=== PATIENT | female | born 1955 | race Caucasian/White ===

== ENCOUNTER 2018-11-02 20:09 | Emergency (ER) | payer BC ==
[2018-11-02] MEDS ORDERED: KETOROLAC TROMETHAMINE 15MG/ML ONE (20:36)
[2018-11-02 20:42] LABS: BASOPHILS % (AUTO) 0.7 % (0.0-5.0); EOSINOPHILS % (AUTO) 0.6 % (0.0-8.0); HEMATOCRIT 40.3 % (36-48); LYMPHOCYTES % (AUTO) 16.6 % (21.0-51.0); MEAN CORPUSCULAR HEMOGLOBIN 32.1 pg (27.0-33.0); MEAN CORPUSCULAR HGB CONC 34.7 g/dL (32.0-36.0); MEAN CORPUSCULAR VOLUME 92.5 fL (79-99); MONOCYTES % (AUTO) 7.1 % (3.0-13.0); PLATELET COUNT (AUTO) 248 K/uL (130-400); RED BLOOD CELL COUNT(AUTO) 4.35 MIL/uL (4.00-5.50); RED CELL DISTRIBUTION WIDTH 13.5 % (11.0-15.5); WHITE BLOOD COUNT (AUTO) 9.1 K/uL (4.8-10.8)
[2018-11-02 20:55] LABS: CREATININE 0.8 mg/dL (0.5-1.5); POTASSIUM 3.9 mmol/L (3.5-5.1)
== END 2018-11-02 23:00 | disposition home or self-care (01) ==
LOC: EDH 20:09
DX: R42 Dizziness and giddiness (principal); R11.10 Vomiting, unspecified; M79.642 Pain in left hand; I48.91 Unspecified atrial fibrillation; I10 Essential (primary) hypertension; M19.90 Unspecified osteoarthritis, unspecified site; E78.00 Pure hypercholesterolemia, unspecified; Z88.6 Allergy status to analgesic agent; Z88.8 Allergy status to other drugs, medicaments and biological substances; Z79.899 Other long term (current) drug therapy; Z72.0 Tobacco use; Z90.710 Acquired absence of both cervix and uterus
CPT/HCPCS: 36415; 80048; 84484 ×2; 85025; 93005 ×2; 96374; 99285; J1885

== ENCOUNTER → 2024-01-27 | Outpatient (CLI) | payer OTHER ==
[~2024-01-27] MED LIST: APIX5TAB PO; ATOR20TA65 PO; AUD IH; CLON0.1T PO; DILT120C95 PO; DOCU100C33 PO; DOXY100T2 PO; FERS325 PO; FLUT15.845 NS; FLUT1DIS3 IH; LEVO-70 PO; MAGN400T51 PO; MIDO5TAB4 PO; PANT40TA54 PO; SERT-440 PO; TRAM50TA4 PO; VARE0.5T6 PO
--- NOTE | 2024-01-27 15:14 | HMCIMG ---
CT LOW EXT W/O CONTRAST HISTORY: Right femur cellulitis COMPARISON: 12/08/2023 TECHNIQUE: Multiple sequential axial images of the right knee, tibia and fibula were obtained including post processing sagittal and coronal reconstruction images. Patient was not given contrast through intravenous route. FINDINGS: Note is again made of complex fluid collection with scar formation noted in the anterolateral aspect of the right mid tibia and fibula now measuring 5 mm in thickness which is decreased in size from previous study. No acute displaced fracture or dislocation seen. Interval improvement is seen. Degenerative changes are seen. Evaluation for osteomyelitis is limited CT. IMPRESSION: 1. Note is again made of complex fluid collection with scar formation noted in the anterolateral aspect of the right mid tibia and fibula now measuring 5 mm in thickness which is decreased in size from previous study. No acute displaced fracture or dislocation seen. Interval improvement is seen. CT was performed with one or more following dose reduction techniques: automated exposure control, adjustment of the mA and kv according to patient's size, or use of a iterative reconstruction technique.
--- NOTE | 2024-01-27 15:47 | HMCIMG ---
CT LOW EXT W/O CONTRAST HISTORY: Right medial knee swelling COMPARISON: 12/08/[address] of the tibia and fibula study TECHNIQUE: Multiple sequential axial images of the right femur, hip and knee were obtained including post processing sagittal and coronal reconstruction images. Patient was not given contrast through intravenous route. FINDINGS: There are degenerative changes with joint space narrowing of the right hip and right knee. No acute displaced fracture or dislocation is seen. IMPRESSION: 1. No fracture is seen. Please see CT of the tibia and fibula study from same day. CT was performed with one or more following dose reduction techniques: automated exposure control, adjustment of the mA and kv according to patient's size, or use of a iterative reconstruction technique.
== END | disposition home or self-care (01) ==
LOC: RAH 14:06
PROVIDERS: ATTEND Internal Medicine
DX: M16.11 Unilateral primary osteoarthritis, right hip (principal); M17.11 Unilateral primary osteoarthritis, right knee; L03.115 Cellulitis of right lower limb; M79.604 Pain in right leg
CPT/HCPCS: 73700